=== PATIENT | female | born 1990 | race Hispanic/Latino ===

== ENCOUNTER 2018-09-23 18:26 | Inpatient (IN) | payer MEDICAID, OTHER ==
[~2018-09-23] VITALS: Ht 160 cm; Wt 74.8 kg
[2018-09-23 19:09] LABS: BILIRUBIN,URINE Negative (NEGATIVE); COLOR,URINE Yellow (YELLOW); GLUCOSE, URINE (UA) Negative (NEGATIVE); KETONES,URINE Negative (NEGATIVE); LEUKOCYTE ESTERASE ,URINE Trace (NEGATIVE); NITRATE,URINE Negative (NEGATIVE); OCCULT BLOOD,URINE Negative (NEGATIVE); PH,URINE 6.5 (5.0-8.0); PROTEIN,URINE Negative (NEGATIVE); UROBILINOGEN,URINE 0.2 mg/dL (0.2-1.0)
[2018-09-23 19:12] LABS: APPEARANCE,URINE CLEAR (CLEAR)
[2018-09-23 19:12] LABS: MEAN CORPUSCULAR HEMOGLOBIN 31.4 pg (27.0-33.0); MEAN CORPUSCULAR HGB CONC 34.9 g/dL (32.0-36.0); MEAN CORPUSCULAR VOLUME 89.9 fL (79-99); PLATELET COUNT (AUTO) 261 K/uL (130-400); RED BLOOD CELL COUNT(AUTO) 4.01 MIL/uL (4.00-5.50); RED CELL DISTRIBUTION WIDTH 14.4 % (11.0-15.5); WHITE BLOOD COUNT (AUTO) 9.4 K/uL (4.8-10.8)
[2018-09-23 19:25] LABS: BACTERIA,URINE Rare /HPF (None Seen); RBC,URINE 0-1 /HPF (0-1)
[2018-09-23 19:26] LABS: SQUAMOUS EPITHELIAL CELL,UR Few /HPF (0-2)
[2018-09-23] MEDS ORDERED: LACTATED RINGERS 1000ML 1,000 ML IV PRN (19:39)
[2018-09-23] MEDS ORDERED: OXYTOCIN 10 USP UNITS/ML 20 UNIT in LACTATED RINGERS 1000ML 1,000 ML IV SCH ×2 (19:45→21:30)
[2018-09-23] MEDS ORDERED: AMPICILLIN 2GM+NS 100ML 100 ML IV SCH (19:45)
[2018-09-23] MEDS ORDERED: OXYTOCIN-LR 20 UNITS/1000 ML 1,000 ML IV ONE ×2 (19:47→19:53)
[2018-09-23] MEDS ORDERED: LACTATED RINGERS 1000ML 1,000 ML IV ONE (19:47)
[2018-09-23] MEDS ORDERED: AMPICILLIN 2GM+NS 100ML 100 ML IV ONE (19:47)
[2018-09-23] MEDS: OXYTOCIN-LR 20 UNITS/1000 ML 1,000 ML IV SCH (20:00)
[2018-09-23] MEDS ORDERED: OXYTOCIN-LR 20 UNITS/1000 ML 1,000 ML IV SCH ×2 (20:00→23:30)
[2018-09-23] MEDS ORDERED: PROMETHAZINE HCL 25 MG/ML 1ML AMPULE IM ONE (22:10)
[2018-09-23] MEDS ORDERED: MEPERIDINE-PF 50 MG/ML SYG ONE (22:11)
[2018-09-23] MEDS ORDERED: EPHEDRINE SULFATE 50 MG/ML AMPULE IVP PRN (22:15)
[2018-09-23] MEDS ORDERED: LACTATED RINGERS 500 ML 500 ML IV PRN (22:15)
[2018-09-23] MEDS ORDERED: NALOXONE HCL 0.4 MG/1 ML ML IV PRN (22:15)
[2018-09-23] MEDS ORDERED: PROMETHAZINE HCL 25 MG/ML 1ML AMPULE IM PRN (22:15)
[2018-09-23] MEDS ORDERED: MEPERIDINE-PF 50 MG/ML SYG IVP ONE (22:15)
[2018-09-23] MEDS ORDERED: LIDOCAINE HCL 1% 20 ML VIAL ONE (22:26)
[2018-09-23] MEDS ORDERED: MEASLES/MUMPS/RUBELLA VACCINE, LIVE 0.5 ML/VIAL SQ PRN (23:30)
[2018-09-23] MEDS ORDERED: WITCH HAZEL 1 PAD TP PRN (23:30)
[2018-09-23] MEDS ORDERED: LANOLIN 30GM OINTMENT TP PRN (23:30)
[2018-09-23] MEDS ORDERED: DIPH,PERTUSS(ACELL),TET VAC/PF 0.5 ML VIAL IM PRN (23:30)
[2018-09-23] MEDS ORDERED: ACETAMINOPHEN-CODEINE 300/30MG TAB PO PRN (23:30)
[2018-09-23] MEDS ORDERED: BENZOCAINE/LANOLIN/ALOE VERA 60 ML AEROSOL TP PRN (23:30)
[2018-09-23] MEDS ORDERED: IBUPROFEN 600 MG TABLET PO PRN (23:30)
[2018-09-23] MEDS ORDERED: ACETAMINOPHEN 325 MG TAB PO PRN (23:30)
[2018-09-24] VITALS (7 sets, daily range): BP systolic 94–120; BP diastolic 50–71
--- NOTE | 2018-09-24 01:00 | NUR ---
Patient received from L&D: Patient came in via wheelchair accompanied by Miguel, RN and Rey Salazar, Railway Engineer. IV of LR with 20 units infusing well regulated at 125 ml/hour. Fundus firm with massage 1 finger above the umbilicus on her right side. Patient encouraged to void to empty her bladder. Plan of care discussed with patient verbalizes understanding. at 0120 patient assisted to the bathroom to void. voided with Lochia rubra moderate amount. Funfus at the level of the umbilicus, firm.
[2018-09-24] MEDS: IBUPROFEN 800 MG TAB PO PRN (01:56)
[2018-09-24] MEDS ORDERED: PREN-66 PO (02:57)
[2018-09-24] MEDS: AMPICILLIN 1GM+NS 50ML 50 ML IV SCH ×2 (04:00→20:00)
--- NOTE | 2018-09-24 05:00 | NUR ---
Patient assisted to the bathroom: Moderate vaginal bleeding noted when patient gets up to the bathroom to void. Fundus firm. Patient wash herself took a shower, things needed given. at 0530 she's back to bed assisted to bed fundus checked it's firm with scant lochia rubra.
[2018-09-24 06:08] LABS: HEMATOCRIT 28.7 % (36-48); MEAN CORPUSCULAR HEMOGLOBIN 31.3 pg (27.0-33.0); MEAN CORPUSCULAR HGB CONC 34.7 g/dL (32.0-36.0); MEAN CORPUSCULAR VOLUME 90.2 fL (79-99); PLATELET COUNT (AUTO) 230 K/uL (130-400); RED BLOOD CELL COUNT(AUTO) 3.18 MIL/uL (4.00-5.50); RED CELL DISTRIBUTION WIDTH 14.5 % (11.0-15.5); WHITE BLOOD COUNT (AUTO) 14.6 K/uL (4.8-10.8)
[2018-09-24] MEDS: DOCUSATE SODIUM 100 MG CAP PO SCH ×2 (08:55→21:01)
[2018-09-24] MEDS: OXYTOCIN-LR 20 UNITS/1000 ML 1,000 ML IV SCH (19:45)
[2018-09-25 03:29] VITALS: BP 93/53
[2018-09-25] MEDS: IBUPROFEN 800 MG TAB PO PRN ×3 (04:30→21:02)
[2018-09-25 07:30] VITALS: BP 88/48
[2018-09-25 08:21] LABS: HEPATITIS Bs ANTIGEN SCREEN P Negative (Negative)
[2018-09-25] MEDS: DOCUSATE SODIUM 100 MG CAP PO SCH ×2 (08:28→21:03)
[2018-09-25 11:33] VITALS: BP 112/55
[2018-09-25 15:42] VITALS: BP 105/65
[2018-09-25 19:40] VITALS: BP 104/59
--- NOTE | 2018-09-25 21:25 | NUR ---
PT. DISCHARGED HOME. TAKEN TO CAR WITH INFANT VIA WC BY MELCHOR PISANO ([employer]), PT'S ACCOMPANIED PT. DENIED FURTHER PAIN AND DISCOMFORT.
== END 2018-09-25 21:25 | disposition home or self-care (01) | DRG 560 ==
LOC: LDH 18:26 → EDBD 18:26 → OBSVTOIN 18:26 → WSH 09-24 01:00
PROVIDERS: ADMIT Obstetrics & Gynecology; ATTEND Obstetrics & Gynecology
PROC: 10E0XZZ Delivery of Products of Conception, External Approach (ICD-10-PCS; principal; 2018-09-23)
PROC: 0KQM0ZZ Repair Perineum Muscle, Open Approach (ICD-10-PCS; 2018-09-23)
PROC: 3E0234Z Introduction of Serum, Toxoid and Vaccine into Muscle, Percutaneous Approach (ICD-10-PCS; 2018-09-23)
PROC: 3E02340 Introduction of Influenza Vaccine into Muscle, Percutaneous Approach (ICD-10-PCS; 2018-09-24)
DX: O69.81X0 Labor and delivery complicated by cord around neck, without compression, not applicable or unspecified (principal); O70.1 Second degree perineal laceration during delivery; Z37.0 Single live birth; Z3A.39 39 weeks gestation of pregnancy; O99.824 Streptococcus B carrier state complicating childbirth; Z23 Encounter for immunization
CPT/HCPCS: 36415; 81001; 85027; 86592; 86850; 86900; 86901; 87340; 90715; G0378; J0290; J2175; J2550; J2590; J7120; Q2035